=== PATIENT | male | born 2000 | race Caucasian/White ===

== ENCOUNTER 2018-03-29 13:30 | Emergency (ER) | payer OTHER ==
[~2018-03-29] VITALS: Ht 177.8 cm; Wt 70.3 kg
--- NOTE | 2018-03-29 14:21 | PHYS DOC ---
Past History Past Medical History: No Pertinent History Past Surgical History: Tonsillectomy Alcohol Use: None Drug Use: Marijuana Adult General Chief Complaint Chief Complaint: COUGH HPI HPI 17-year-old male presents from urgent care with concern of abnormal EKG. The patient went in because he's had a cough for the last several days. He is also had the taste of blood in his mouth but has not coughed up any blood. He has also had bilateral hand swelling since this morning. His hands are slightly painful. The urgent care performed an EKG and they were concerned it was abnormal so they advised he come to the emergency room. The patient has not had fever or chills. Review of Systems Review of Systems Constitutional: Denies fever or chills [] Eyes: Denies change in visual acuity, redness, or eye pain [] HENT: Denies nasal congestion or sore throat [] Respiratory: Cough[] Cardiovascular: No additional information not addressed in HPI [] GI: Denies abdominal pain, nausea, vomiting, bloody stools or diarrhea [] : Denies dysuria or hematuria [] Musculoskeletal: Bilateral hand tingling/numbness[] Integument: Denies rash or skin lesions [] Neurologic: Denies headache, focal weakness or sensory changes [] Endocrine: Denies polyuria or polydipsia [] All other systems were reviewed and found to be within normal limits, except as documented in this note. Physical Exam Physical Exam Constitutional: Well developed, well nourished, no acute distress, non-toxic appearance. [] HENT: Normocephalic, atraumatic, bilateral external ears normal, oropharynx moist, no oral exudates, nose normal. [] Eyes: PERRLA, EOMI, conjunctiva normal, no discharge. [] Neck: Normal range of motion, no tenderness, supple, no stridor. [] Cardiovascular:Heart rate regular rhythm, no murmur [] Lungs & Thorax: Bilateral breath sounds clear to auscultation [] Abdomen: Bowel sounds normal, soft, no tenderness, no masses, no pulsatile masses. [] Skin: The patient's bilateral hands are cool to the touch. Normal radial and ulnar pulses. [] Back: No tenderness, no CVA tenderness. [] Extremities: No tenderness, no cyanosis, no clubbing, ROM intact, no edema. [] Neurologic: Alert and oriented X 3, normal motor function, normal sensory function, no focal deficits noted. [] Psychologic: Affect normal, judgement normal, mood normal. [] Current Patient Data Vital Signs Vital Signs Date Time Temp Pulse Resp B/P (MAP) Pulse Ox O2 Delivery O2 Flow Rate FiO2 03/29/18 13:55 98.6 75 14 100 Room Air EKG EKG Sinus rhythm, rate 61, normal axis, no ST elevations or depressions. Radiology/Procedures Radiology/Procedures [] Impressions: Chest, PA and Lateral: Technique: PA and lateral views of the chest were obtained. History: Cough. Comparison: None. Findings: The heart and pulmonary vasculature appear within normal limits. The lungs are clear. The pleural margins are clear. Impression: No acute chest process is seen. Electronically signed by: Louie Werner MD (03/29/2018 2:23 PM) [facility] DICTATED AND SIGNED BY: LOUIE WERNER MD DATE: 03/29/18 1420 CC: LEONARDA BROWN DO; DESHAUN WHITTINGTON Course & Med Decision Making Course & Med Decision Making Pertinent Labs and Imaging studies reviewed. (See chart for details) The patient's labs are unremarkable. His troponin is negative. His EKG is unremarkable. His chest x-ray is unremarkable. I do not see any significant evidence of medical problem. I do not believe there is any cardiac dysfunction. I don't have a definitive cause for the patient's hand swelling. It could be due to a viral illness causing the cough. There is a family history of rheumatoid arthritis, but not with his first level relatives. I have reassured him that I do not see anything concerning in his current workup. His symptoms do not resolve on exudates U follow-up with PCP. I will discharge him with cough medicine to help him sleep. He is stable for discharge at this time. [] Dragon Disclaimer Dragon Disclaimer This electronic medical record was generated, in whole or in part, using a voice recognition dictation system. Departure Departure: Impression: Primary Impression: Viral URI with cough Disposition: HOME, SELF-CARE Condition: STABLE Referrals: DESHAUN WHITTINGTON (PCP) Patient Instructions: Upper Respiratory Infection, Adult, [id number] Scripts Codeine Phosphate/Guaifenesin (Guaifen-Codeine 200-20 mg/10Ml) 10 Ml Liquid 5 ML PO Q4-6HRS PRN for COUGH, #100 LIQUID Prov: LEONARDA BROWN DO 03/29/18 LEONARDA BROWN DO Mar 29, 2018 14:21
--- NOTE | 2018-03-29 14:27 | RAD ---
Chest, PA and Lateral: Technique: PA and lateral views of the chest were obtained. History: Cough. Comparison: None. Findings: The heart and pulmonary vasculature appear within normal limits. The lungs are clear. The pleural margins are clear. Impression: No acute chest process is seen. Electronically signed by: Louie Werner MD (03/29/2018 2:23 PM) [facility]
[2018-03-29 14:32] LABS: BASO # 0.1 x10^3/uL (0.0-0.2); BASO % 1 % (0-3); EOS # 0.5 x10^3/uL (0.0-0.7); EOS % 7 % (0-3); HEMATOCRIT 45.3 % (39.0-53.0); HEMOGLOBIN 15.1 g/dL (13.0-17.5); LYMPH # 1.8 x10^3/uL (1.0-4.8); LYMPH % 28 % (24-48); MEAN CORPUSCULAR HEMOGLOBIN 31 pg (25-35); MEAN CORPUSCULAR HGB CONC 33 g/dL (31-37); MEAN CORPUSCULAR VOLUME 92 fL (79-100); MONO # 0.8 x10^3/uL (0.0-1.1); MONO % 12 % (0-9); NEUT # 3.4 x10^3uL (1.8-7.7); NEUT % 52 % (31-73); PLATELET COUNT 275 x10^3/uL (140-400); RED BLOOD COUNT 4.91 x10^6/uL (4.30-5.70); RED CELL DISTRIBUTION WIDTH 13.5 % (11.5-14.5); WHITE BLOOD COUNT 6.6 x10^3/uL (4.0-11.0)
[2018-03-29 14:47] LABS: ALBUMIN 4.2 g/dL (3.4-5.0); ALBUMIN/GLOBULIN RATIO 1.2 (1.0-1.7); CALCIUM 9.1 mg/dL (8.5-10.1); CREATININE 0.9 mg/dL (0.7-1.3); GFR 108.7; POTASSIUM 3.7 mmol/L (3.5-5.1); TOTAL BILIRUBIN 0.3 mg/dL (0.2-1.0); TOTAL PROTEIN 7.8 g/dL (6.4-8.2)
[2018-03-29] MEDS ORDERED: CODE10LI PO (15:16)
[2018-03-29 15:31] VITALS: BP 127/45
--- NOTE | 2018-03-30 05:48 | EKG ---
[address] [address] Test Date: 2018-03-29 Test Time: 13:37:28 Pat Name: JACK PEREZ Department: Room: Gender: M Paver Layer: BETH : 2000 Requested By: LEONARDA BROWN Order Number: [id number] Reading MD: Jack Sharma MD Measurements Intervals [place] Rate: 61 P: 0 [place]: 134 QRS: 56 QRSD: 98 T: 33 QT: 394 QTc: 402 Interpretive Statements SINUS RHYTHM Electronically Signed On 03-30-2018 8:30:44 ICE SELLER by Jack Sharma MD
== END 2018-03-29 15:30 | disposition home or self-care (01) ==
LOC: ER 13:30
DX: J06.9 Acute upper respiratory infection, unspecified (principal); B97.89 Other viral agents as the cause of diseases classified elsewhere; Z90.89 Acquired absence of other organs
CPT/HCPCS: 36415; 71046; 80053; 84484; 85025; 93005; 99284

== ENCOUNTER 2018-04-06 07:19 | Emergency (ER) | payer OTHER ==
[~2018-04-06] VITALS: Ht 177.8 cm; Wt 70.3 kg
[~2018-04-06 07:19] MED LIST: CODE10LI PO
[2018-04-06 07:23] VITALS: BP 144/75
[2018-04-06] MEDS ORDERED: IPRATRPIUM/ALBUTEROL 0.5/2.5MG 3 ML NEBU. ONE (07:36)
[2018-04-06] MEDS ORDERED: IV NORMAL SALINE 1,000ML 1,000 ML IV SCH (07:39)
[2018-04-06] MEDS ORDERED: methylPREDNISolone SOD SUCC PF 125 MG/2 ML VIAL. IV ONE (07:45)
[2018-04-06] MEDS ORDERED: IPRATRPIUM/ALBUTEROL 0.5/2.5MG 3 ML NEBU. NEB ONE ×2 (07:45→09:45)
--- NOTE | 2018-04-06 08:21 | RAD ---
EXAM: Chest, 2 views. HISTORY: Shortness of breath. COMPARISON: 03/29/2018. FINDINGS: 2 views the chest are obtained. There is no infiltrate, pleural effusion or pneumothorax. The heart is normal in size. IMPRESSION: No acute pulmonary finding. Electronically signed by: Pippa Kingsley MD (04/06/2018 8:18 AM) [facility]
[2018-04-06 08:36] LABS: ALBUMIN 4.2 g/dL (3.4-5.0); ALBUMIN/GLOBULIN RATIO 1.2 (1.0-1.7); CALCIUM 9.1 mg/dL (8.5-10.1); GFR 96.3; POTASSIUM 3.3 mmol/L (3.5-5.1); TOTAL BILIRUBIN 0.7 mg/dL (0.2-1.0); TOTAL PROTEIN 7.8 g/dL (6.4-8.2)
[2018-04-06 08:37] LABS: BASO # 0.1 x10^3/uL (0.0-0.2); BASO % 1 % (0-3); EOS # 0.9 x10^3/uL (0.0-0.7); EOS % 15 % (0-3); HEMATOCRIT 47.5 % (39.0-53.0); HEMOGLOBIN 16.2 g/dL (13.0-17.5); LYMPH # 1.8 x10^3/uL (1.0-4.8); LYMPH % 31 % (24-48); MEAN CORPUSCULAR HEMOGLOBIN 31 pg (25-35); MEAN CORPUSCULAR HGB CONC 34 g/dL (31-37); MEAN CORPUSCULAR VOLUME 91 fL (79-100); MONO # 0.7 x10^3/uL (0.0-1.1); MONO % 11 % (0-9); NEUT # 2.4 x10^3uL (1.8-7.7); NEUT % 41 % (31-73); PLATELET COUNT 238 x10^3/uL (140-400); RED BLOOD COUNT 5.21 x10^6/uL (4.30-5.70); WHITE BLOOD COUNT 5.8 x10^3/uL (4.0-11.0)
[2018-04-06 08:39] LABS: INFLUENZA A PATIENT NEGATIVE (NEGATIVE); INFLUENZA B PATIENT NEGATIVE (NEGATIVE)
[2018-04-06] MEDS ORDERED: HYDR115S2 PO (09:45)
[2018-04-06] MEDS ORDERED: ALBU2.5V8 INH (09:45)
[2018-04-06] MEDS ORDERED: AZIT250T PO (09:45)
[2018-04-06] MEDS ORDERED: POTASSIUM CHLORIDE 20 MEQ TABLET.ER. PO ONE (09:45)
[2018-04-06] MEDS ORDERED: METH4TAB2 PO (09:45)
--- NOTE | 2018-04-06 09:47 | PHYS DOC ---
Past History Past Medical History: No Pertinent History Past Surgical History: Tonsillectomy Alcohol Use: None Drug Use: None Adult General Chief Complaint Chief Complaint: SHORTNESS OF BREATH HPI HPI Patient is a 17 year old male who presents with complaining of shortness of breath and cough. Patient states he has had nonproductive cough for one week and was seen at urgent care and then sent to emergency room because of abnormal EKG one week ago and had unremarkable evaluations. Patient complaining of shortness of breath and increasing cough for the last 2 days with fever and posttussive vomiting without myalgia, headache, sick contact. Review of Systems Review of Systems Constitutional: Reports fever Eyes: Denies change in visual acuity, redness, or eye pain [] HENT: Denies sore throat, reports nasal congestion [] Respiratory: Reports cough and shortness of breath Cardiovascular: No additional information not addressed in HPI [] GI: Denies abdominal pain, bloody stools or diarrhea [] : Denies dysuria or hematuria [] Musculoskeletal: Denies back pain or joint pain [] Integument: Denies rash or skin lesions [] Neurologic: Denies headache, focal weakness or sensory changes [] Endocrine: Denies polyuria or polydipsia [] All other systems were reviewed and found to be within normal limits, except as documented in this note. Current Medications Current Medications Current Medications Medications (Trade) Dose Ordered Sig/Brent Start Time Stop Time Status Last Admin Dose Admin Albuterol/ Ipratropium (Duoneb) 3 ml 1X ONCE 04/06/18 09:45 04/06/18 09:46 Methylprednisolone Sodium Succinate (SOLU-Medrol 125MG VIAL) 125 mg 1X ONCE 04/06/18 07:45 04/06/18 08:49 DC 04/06/18 08:03 125 MG Potassium Chloride (Klor-Con) 40 meq 1X ONCE 04/06/18 09:45 04/06/18 09:46 Sodium Chloride 1,000 ml @ 1,000 mls/hr Q1H 04/06/18 07:39 04/06/18 08:49 DC 04/06/18 08:04 1,000 MLS/HR Allergies Allergies Allergies Coded Allergies Type Severity Reaction Last Updated Verified Sulfa (Sulfonamide Antibiotics) Allergy Unknown 04/06/18 Yes Physical Exam Physical Exam Constitutional: Well developed, well nourished, moderate acute distress, non- toxic appearance. [] HENT: Normocephalic, atraumatic, bilateral external ears normal, oropharynx moist, pharyngeal erythema, no oral exudates, nose normal. [] Eyes: PERRLA, EOMI, conjunctiva normal, no discharge. [] Neck: Normal range of motion, no tenderness, supple, no stridor. [] Cardiovascular:Heart rate regular rhythm, no murmur [] Lungs & Thorax: Mild respiratory distress with bilateral wheezing and coarse expiratory breath sounds, O2 sat at room air 92% Abdomen: Bowel sounds normal, soft, no tenderness, no masses, no pulsatile masses. [] Skin: Warm, dry, no erythema, no rash. [] Back: No tenderness, no CVA tenderness. [] Extremities: No tenderness, no cyanosis, no clubbing, ROM intact, no edema. [] Neurologic: Alert and oriented X 3, normal motor function, normal sensory function, no focal deficits noted. [] Psychologic: Affect normal, judgement normal, mood normal. [] Current Patient Data Vital Signs Vital Signs Date Time Temp Pulse Resp B/P (MAP) Pulse Ox O2 Delivery O2 Flow Rate FiO2 04/06/18 07:23 97.8 69 20 96 Room Air Lab Results Laboratory Tests Test 04/06/18 07:52 04/06/18 08:05 Influenza Type A (Rapid) Negative (NEGATIVE) Influenza Type B (Rapid) Negative (NEGATIVE) White Blood Count 5.8 x10^3/uL (4.0-11.0) Red Blood Count 5.21 x10^6/uL (4.30-5.70) Hemoglobin 16.2 g/dL (13.0-17.5) Hematocrit 47.5 % (39.0-53.0) Mean Corpuscular Volume 91 fL (79-100) Mean Corpuscular Hemoglobin 31 pg (25-35) Mean Corpuscular Hemoglobin Concent 34 g/dL (31-37) Red Cell Distribution Width 13.0 % (11.5-14.5) Platelet Count 238 x10^3/uL (140-400) Neutrophils (%) (Auto) 41 % (31-73) Lymphocytes (%) (Auto) 31 % (24-48) Monocytes (%) (Auto) 11 % (0-9) H Eosinophils (%) (Auto) 15 % (0-3) H Basophils (%) (Auto) 1 % (0-3) Neutrophils # (Auto) 2.4 x10^3uL (1.8-7.7) Lymphocytes # (Auto) 1.8 x10^3/uL (1.0-4.8) Monocytes # (Auto) 0.7 x10^3/uL (0.0-1.1) Eosinophils # (Auto) 0.9 x10^3/uL (0.0-0.7) H Basophils # (Auto) 0.1 x10^3/uL (0.0-0.2) Sodium Level 142 mmol/L (136-145) Potassium Level 3.3 mmol/L (3.5-5.1) L Chloride Level 104 mmol/L (98-107) Carbon Dioxide Level 28 mmol/L (21-32) Anion Gap 10 (6-14) Blood Urea Nitrogen 16 mg/dL (8-26) Creatinine 1.0 mg/dL (0.7-1.3) Estimated GFR (Cockcroft-Gault) 96.3 BUN/Creatinine Ratio 16 (6-20) Glucose Level 113 mg/dL (70-99) H Lactic Acid Level 1.3 mmol/L (0.4-2.0) Calcium Level 9.1 mg/dL (8.5-10.1) Total Bilirubin 0.7 mg/dL (0.2-1.0) Aspartate Amino Transferase (AST) 20 U/L (15-37) Alanine Aminotransferase (ALT) 24 U/L (16-63) Alkaline Phosphatase 96 U/L (46-116) Total Protein 7.8 g/dL (6.4-8.2) Albumin 4.2 g/dL (3.4-5.0) Albumin/Globulin Ratio 1.2 (1.0-1.7) EKG EKG [] Radiology/Procedures Radiology/Procedures [address] [address] IMAGING REPORT Signed PATIENT: JACK PEREZ ACCOUNT: [id number] : 2000 LOCATION: ER AGE: 17 SEX: M EXAM STATUS: REG ER ORD. PHYSICIAN: JOSE JOSÉ MD REASON: SOB PROCEDURE: CHEST PA & LATERAL EXAM: Chest, 2 views. HISTORY: Shortness of breath. COMPARISON: 03/29/2018. FINDINGS: 2 views the chest are obtained. There is no infiltrate, pleural effusion or pneumothorax. The heart is normal in size. IMPRESSION: No acute pulmonary finding. Electronically signed by: Pippa Loja MD (04/06/2018 8:18 AM) [facility] DICTATED AND SIGNED BY: PIPPA LOJA MD DATE: 04/06/18817 CC: JOSE JOSÉ MD; DESHAUN WHITTINGTON ~ Course & Med Decision Making Course & Med Decision Making Pertinent Labs and Imaging studies reviewed. (See chart for details) Evaluation of patient in ER showed 17-year-old male patient with complaining of cough and shortness of breath and fever for almost one week. Patient had O2 sat of low 90s at room air. Patient treated with nebulizer treatment, IV fluid, Solu -Medrol. Labs and chest x-ray was unremarkable. Patient O2 sat improved to 95+ and patient felt better. Plan discharge patient home with diagnosis of acute bronchitis. Dragon Disclaimer Dragon Disclaimer This electronic medical record was generated, in whole or in part, using a voice recognition dictation system. Departure Departure: Impression: Primary Impression: Acute bronchitis and bronchiolitis Additional Impressions: Hypoxia Hypokalemia Disposition: 01 HOME, SELF-CARE Condition: IMPROVED Referrals: DESHAUN WHITTINGTON (PCP) Patient Instructions: Acute Bronchitis, Hypokalemia, Shortness of Breath Additional Instructions: Drink plenty of liquids Follow-up with your primary care physician in 3-5 days Return to ER if not getting better Scripts Azithromycin (ZITHROMAX) 250 Mg Tablet 1 PKG PO UD for infection, #1 PKG Prov: JOSE JOSÉ MD 04/06/18 Hydrocodone/Chlorphen P-Stirex (Tussionex Pennkinetic Susp) 115 Ml Dorothy.er.12h 5 ML PO BID for cough and congestion, #60 ML Prov: JOSE JOSÉ MD 04/06/18 Albuterol Sulfate (PROAIR HFA INHALER) 8.5 Gm Hfa.aer.ad 2 PUFF INH PRN Q6HRS PRN for SHORTNESS OF BREATH, #1 INHALER 0 Refills Prov: JOSE JOSÉ MD 04/06/18 Methylprednisolone (MEDROL) 4 Mg Tab.ds.pk 1 PKG PO UD for inflammation, #1 PKG Prov: JOSE JOSÉ MD 04/06/18 Problem Qualifiers JOSE JOSÉ MD Apr 06, 2018 09:47
== END 2018-04-06 10:02 | disposition home or self-care (01) ==
LOC: ER 07:19
DX: J20.9 Acute bronchitis, unspecified (principal); J21.9 Acute bronchiolitis, unspecified; R11.11 Vomiting without nausea; R09.02 Hypoxemia; E87.6 Hypokalemia; Z88.2 Allergy status to sulfonamides
CPT/HCPCS: 36415; 71046; 80053; 83605; 85025; 87040; 87804; 94640; 96361; 96374; 99284; J2930; J7620; J7030